=== PATIENT | male | born 1945 | race Caucasian/White ===

== ENCOUNTER 2020-12-05 09:53 | Outpatient (CLI) | payer OTHER, SELFPAY ==
--- NOTE | 2020-12-05 11:32 | N.ONRAD NP_ITS ---
Radiation Oncology Consultation Patient Name: Graham Brown Date of : 1945 Date of Service: 12/05/2020 Attending Physician: Lenin Hines M.D. Graham Brown was seen in consultation this morning [facility] for the management of a previously diagnosed prostate cancer with a recent PSA elevation indicating biochemical failure. He initially was diagnosed in 2005 with prostate cancer whereupon a radical prostatectomy was performed (the outside hospital records were requested). The pathology report confirmed an adenocarcinoma the prostate (10- 15% involvement) with a [place] score of 3+3 (pT2c). A pelvic lymphadenectomy was not performed. The patient's PSA level incipiently neva to 0.1 ng/mL in October 2018. His most recent PSA (October) was 0.5 ng/mL. A F???18???fluciclovine PET/CT scan (Axumin) ordered on October demonstrated a 7.7 x 3.3 mm focus increased radiopharmaceutical infero-posterior bladder wall (SUV 5.7) that is consistent with recurrent prostate carcinoma. The patient was evaluated for salvage radiotherapy. I reviewed the recommendations as per National Comprehensive Cancer Network Guidelines in conjunction with androgen deprivation therapy for salvage radiotherapy. I also discussed the RTOG 9601 trial that determined 24 months of antiandrogen therapy to salvage radiotherapy resulted in an improvement in overall survival and the GETUG-AFU 16 that attested improvement in progression free survival to the patients randomized to radiotherapy in conjunction with short-term hormonal suppression. I would endorse a 6 1/2 week course of radiotherapy with concurrent gonadotropin releasing hormone agonist pharmacotherapy. Prior to beginning treatment, a CT scan will be acquired in the treatment position to delineate the clinical target volume. Toxicities of pelvic radiotherapy were also canvassed. The patient has verbalized understanding would like proceed as recommended. I will order labs today. The patient's medical treatment plan was discussed with Mayito Lux M.D. Signed by: Dr. Lenin Hines 12/12/2020 10:56:37 AM
[2020-12-05 12:41] LABS: Basophils # 0.1 10^3/uL (0.0-0.1); Basophils % 0.8 %; Eosinophils # 0.3 10^3/uL (0.0-0.8); Eosinophils % 3.9 %; Hematocrit 43.6 % (42.0-52.0); Hemoglobin 14.3 g/dL (11.7-16.6); Lymphocytes # 1.9 10^3/uL (0.8-4.8); Lymphocytes % 29.1 %; Mean Corpuscular HGB Conc 32.8 g/dL (30.0-36.0); Mean Corpuscular Hemoglobin 32.1 pg (28.0-34.0); Mean Platelet Volume 11.1 fL (7.4-10.4); Monocytes # 0.5 10^3/uL (0.2-0.9); Monocytes % 7.9 %; Neutrophils # 3.74 10^3/uL (1.8-7.7); Neutrophils % 57.8 %; Nucleated Red Blood Cells % 0 %; Platelet Count 161 10^3/cmm (130-400); Red Blood Count 4.45 10^6/uL (4.1-5.3); Red Cell Distribution Width 12.9 % (12.1-15.1); White Blood Count 6.5 10^3/uL (4.0-10.0)
[2020-12-05 13:21] LABS: Prostate Specific Antigen 0.302 ng/mL (0-4); Testosterone Total 523.8 ng/dL (193-740)
[2020-12-05 13:33] LABS: Alanine Aminotransferase 18 U/L (0-41); Albumin Level 3.9 g/dL (3.5-5.2); Alkaline Phosphatase 49 IU/L (40-130); Anion Gap 14.2 (5-19); Aspartate Amino Transferase 17 U/L (0-40); Blood Urea Nitrogen 10 mg/dL (8-23); Calcium 8.4 mg/dL (8.5-10.5); Carbon Dioxide 24 mmol/L (22-29); Chloride 105 mmol/L (98-107); Globulin 2.2 g/dL (1.3-4.6); Glucose 85 mg/dL (65-115); Osmolality Calculated 286 mOsm/kg (285-295); Potassium 4.2 mmol/L (3.5-5.1); Sodium 139 mmol/L (136-145); Total Bilirubin 0.6 mg/dL (0.15-1.2); Total Protein 6.1 g/dL (6.6-8.7)
== END 2020-12-05 09:54 | disposition home or self-care (01) ==
PROVIDERS: PCP Nurse Practitioner Family; Visit Provider Radiology Radiation Oncology
DX: C61 Malignant neoplasm of prostate (principal); R97.20 Elevated prostate specific antigen [PSA]; Z79.818 Long term (current) use of other agents affecting estrogen receptors and estrogen levels; Z79.899 Other long term (current) drug therapy
CPT/HCPCS: 36415; 80053; 84153; 84403; 85025; 99205

== ENCOUNTER 2020-12-12 07:41 | Outpatient (CLI) | payer OTHER, SELFPAY ==
--- NOTE | 2020-12-12 12:43 | ONC CON_ITS ---
Dr. Lux New Patient Note Patient: Graham Brown < Unit #: [id number]: 1945 Dicatated By: Mayito Lux M.D.Date of Visit: Dec 12, 2020 Onc MED New Patient/Consult Referring Physician: Jose Maza History of Present Illness: Mr. Graham Brown, is a 75-year-old gentleman with a history of prostate cancer diagnosed in 2005 at that time he underwent radical prostatectomy without pelvic lymphadenectomy and pathology report showed adenocarcinoma of the prostate 10 to 15% involvement with Cable score 3+3 (pT2c) and during follow-up his PSA increased to 0.1 ng/ml in October 2018 and then in October 2019 increased to 0.5 ng/ml and at that time Axumin CT PET scan was ordered which was done on November 05, 2020 showed 7.7 x 3.3 mm focus increased radiopharmaceutical inferoposterior lateral wall SUV 5.7 that is consistent with recurrent prostate cancer, Patient was referred to radiation oncology for salvage radiotherapy Patient denies any hematuria denies any new bony pains, denies any fever or chills denies any nausea or vomiting denies any diarrhea or constipation, denies any weight loss, patient denies smoking but chews tobacco, denies any alcohol use. Now being evaluated for combined ADT/radiation therapy Past Medical History: Mr. Brown's medical history consists of anxiety, asthma, atrial fibrillation, BENIGN PROSTATIC HYPERTROPHY, ERECTILE DYSFUNCTION, gastroesophageal reflux disease, hypertension, osteoarthritis, SLEEP APNEA, thoracic aortic aneurysm, and vitamin d deficiency. Past Surgical History: Mr. Brown's surgical/procedural history consists of prostatectomy, tonsillectomy, and colonoscopy in 2016. Medications: Carvedilol (25 mg) Tablet Oral b.i.d., Cholecalciferol (25 mcg ) Tablet Oral daily, Diclofenac Sodium Gel (jelly) Topical b.i.d. PRN, Ketoconazole Shampoo Topical on M,Th,F PRN, Omeprazole (20 mg) Capsule Delayed Release Oral every am, PARoxetine HCl (5 mg) Tablet Oral daily, Pravastatin Sodium (40 mg) Tablet Oral at bedtime, Rivaroxaban (20 mg) Tablet Oral at bedtime Allergies: No Known Allergies. Social History: Mr. Brown is . Mr. Brown quit smoking 35 years ago but had smoked 1.5 packs/day for 20 years. He is a former drinker. He has indicated exposure to the following products: chewing tobacco. Chews. Family History: Mr. Brown's mother at age 76. Mr. Brown's father at age 77. Mr. Brown has 1 brother who is alive. He has 1 sister who is alive. Review Of Symptoms: Review of Systems is not available for this patient. Vital Signs: Performed on Dec 12, 2020 11:08: 6, 0, 29.46, 2.09 sq.m, 69.50 in, 97 %, 57 /min (LOW), 18 /min, 132/87 mm(hg), 98.4 F, and 202.4 lbs (LOW). Performance Status: 0 - Fully active, able to carry on all predisease activities without restrictions. (ECOG) Physical Examination: ENMT - No mouth sores, no thrush, no jaundice, Respiratory - Lungs are clear to auscultation, Cardiovascular - Irregular rate and rhythm, Abdomen - Soft, bowel sounds present, Extremities - No visible edema or rash. Lab/Imaging: Most recent lab results are not available for this patient. Impression: Recurrent prostate cancer confirmed with increased PSA, in October 2020 it was 0.5 ng/ml compared to 0.1 ng/ml in October 2018 and follow-up Axumin CT PET scan done on November 05, 2020 showed 7.7 x 3.3 mm focus of increased radiopharmaceutical inferoposterior bladder wall lesion with SUV of 5.7 consistent with recurrent prostate cancer History of adenocarcinoma prostate status post radical prostatectomy without pelvic lymphadenectomy done in 2005,, final pathology report showed T2c, l10 to 15% involvement with Cable score 3+3 History of atrial fibrillation, on anticoagulation, Hypertension, osteoarthritis Aneurysm of thoracic aorta Plan: Discussed with patient regarding his disease status and treatment options, as per recently done Axumin CT PET scan which confirmed solitary lesion in inferoposterior bladder wall, now being considered for salvage radiotherapy, as per patient discussion with radiation oncology Dr. Hines based on NCCN guidelines and per clinical trial RTOG 9601 trial, and GET-AFU 16, shows improvement in progression free survival with the addition of short-term hormonal therapy to the salvage radiation therapy. In that case, we will consider Zoladex 10.8 mg every 3 months x2 concurrent with salvage radiation therapy, will start Zoladex on first day of radiation therapy and then repeat in 3 months. All the side effect, possible benefits associated with ADT including but not limited to hot flashes, mood swings, generalized weakness and fatigue, decreased libido, bone demineralization especially with long-term ADT. Further teaching will done by chemotherapy nurse, patient and family agreed for the treatment, at this point will obtain approval from his insurance prior to the treatment and patient will return to clinic in 1 month after the Zoladex injection with CBC CMP PSA and testosterone. Signed By: Mayito Lux M.D. <<Signature on File>>
== END 2020-12-12 07:42 | disposition home or self-care (01) ==
PROVIDERS: PCP Nurse Practitioner Family; Visit Provider Internal Medicine Hematology & Oncology
DX: C61 Malignant neoplasm of prostate (principal); R97.20 Elevated prostate specific antigen [PSA]; R59.0 Localized enlarged lymph nodes; I48.20 Chronic atrial fibrillation, unspecified; Z79.01 Long term (current) use of anticoagulants; I10 Essential (primary) hypertension; M19.90 Unspecified osteoarthritis, unspecified site; I71.2 Thoracic aortic aneurysm, without rupture; Z79.899 Other long term (current) drug therapy; Z79.890 Hormone replacement therapy
CPT/HCPCS: 99204

== ENCOUNTER 2020-12-31 05:46 | Outpatient (RCR) | payer OTHER, SELFPAY ==
--- NOTE | 2020-12-18 | CT_ITS ---
Radiation Therapy Planning CT images; total exam DLP: 1258.38 mGy-cm MTDD
[2020-12-23] MEDS: lidocaine 1% INJ 20 mL INJECTION (09:07)
[2020-12-23] MEDS: goserelin acetate 10.8 mg Implant SUBCUT (09:17)
--- NOTE | 2020-12-23 09:58 | ONCRAD TMN_ITS ---
Radiation Oncology Treatment Management Note Patient Name: Graham Brown Date of : 1945 Date of Service: 12/23/2020 Attending Physician: Lenin Hines M.D. Graham Brown is a 75 year old white male previously diagnosed with prostate cancer and recently developed a PSA elevation indicating a biochemical failure. He initially was diagnosed in 2005 with prostate cancer whereupon a radical prostatectomy was performed. The pathology report confirmed an adenocarcinoma the prostate (10- 15% involvement) with a [place] score of 3+3 (pT2c). A pelvic lymphadenectomy was not performed. The patient's PSA level incipiently neva to 0.1 ng/mL in October 2018. His most recent PSA (October) was 0.5 ng/mL. An F???18 fluciclovine PET/CT scan (Axumin) ordered on November 05, 2020 demonstrated a 7.7 x 3.3 mm focus increased radiopharmaceutical infero-posterior bladder wall (SUV 5.7) that is consistent with recurrent prostate carcinoma. The patient has received 2 Gy of a prescribed 66 Esparza to the prostate fossa with an intensity modulated radiotherapy plan utilizing a step and shoot treatment technique. He was prescribed Zoladex (October 10, 2020). Upon review of systems, he denied any gastrointestinal complaints related to radiotherapy. On physical examination, the patient weighed 206 lbs. His temperature was 97.1 ???F with a blood pressure of 142/91 mmHg. The pulse was 52 bpm and his respiratory rate was 18. There was no erythema within the treatment joya. Continue pelvic radiotherapy as prescribed. Signed by: Dr. Lenin Hines 12/23/2020 9:56:43 AM
--- NOTE | 2020-12-30 10:24 | ONCRAD TMN_ITS ---
Radiation Oncology Weekly Treatment Management Patient: Stephanie Stevenson MR#: [id number] : 1945 Attending Physician: Dr. Gatito Murcia Date of Service: 12/30/2020 Referring Physician(s) : Diagnosis: C61 - Malignant neoplasm of prostate, Diagnosed 11/05/2020 (Active) Radiotherapy to date: Course: Prostate 2020, Treatment Site: Prostate Ca ??? [facility], Ref. ID: [id number], Energy: 6X, Dose/Fx (cGy): 200, #Fx: , Dose Correction (cGy): 0, Total Dose (cGy): 1,200, Start Date: 12/23/2020, Elapsed Days: 7 Reason for visit: The patient is being seen today as part of their regularly scheduled weekly on treatment visits to assess for acute toxicities from radiotherapy. Review of Systems: Mr. Brown is beginning his second week of salvage radiation following a biochemical failure after radical prostatectomy. He is receiving concomitant Zoladex. Currently he feels well and has no complaints. He has no dysuria, pyuria, or hematuria. He has nocturia x3 which is normal for him. He has in continence from the prostatectomy and thinks it may be a little worse since starting radiation. [facility] and does not seem concerned about the incontinence. In terms of bowels, he has some episodes of diarrhea but tends to have that from medication. He has not noted a change in the pattern. Vital Signs: Performed on 12/30/2020 9:48 AM BMI - 30.131 kg/m2 (high), Height - 69.50 in, Weight - 207.0 lbs, Temperature - 97.2 f, Pulse - 54 /min (low), Respiration - 20 /min, O2 Sat - 97 %, Pain - 3 and BP - 148/ 92 mm(hg)(high). Physical Exam: He has a small bruise on his lower abdomen from a recent Zoladex injection. He has no anterior pelvic wall or inguinal skin reaction. Also no skin reaction involving the buttocks or intergluteal fold. He is alert, oriented, and in no acute distress. Imaging: Radiation therapy imaging related to accurate target localization (i.e. KV, MV and CBCT) was reviewed. Appropriate changes, if any, were made to ensure treatment accuracy. Plan: Continue radiation according to plan. We discussed the use of Imodium A-D if diarrhea becomes a problem. Also mentioned that a low fiber diet may be needed if his diarrhea is poorly controlled. He had no questions about the treatment process. Signed by: Dr. Gatito Murcia 12/30/2020 10:22:21 AM
== END 2020-12-31 23:59 | disposition home or self-care (01) ==
LOC: ONCMED 05:46
PROVIDERS: Absent Provider Radiology Radiation Oncology; PCP Nurse Practitioner Family; Visit Provider Specialist
DX: Z51.0 Encounter for antineoplastic radiation therapy (principal); Z51.11 Encounter for antineoplastic chemotherapy; C61 Malignant neoplasm of prostate; Z79.899 Other long term (current) drug therapy
CPT/HCPCS: 77300; 77301; 77334; 77338; 77385; 77470; 96372; 96402; J9202

== ENCOUNTER 2021-01-30 06:31 | Outpatient (RCR) | payer OTHER, SELFPAY ==
--- NOTE | 2021-01-07 09:05 | ONCRAD TMN_ITS ---
Radiation Oncology Treatment Management Note Patient Name: Graham Brown Date of : 1945 Date of Service: 01/07/2021 Attending Physician: Lenin Hines M.D. Graham Brown is a 75 year old white male previously diagnosed with prostate cancer and recently developed a PSA elevation indicating a biochemical failure. He initially was diagnosed in 2005 with prostate cancer whereupon a radical prostatectomy was performed. The pathology report confirmed an adenocarcinoma the prostate (10- 15% involvement) with a [place] score of 3+3 (pT2c). A pelvic lymphadenectomy was not performed. The patient's PSA level incipiently neva to 0.1 ng/mL in October 2018. His most recent PSA (October) was 0.5 ng/mL. An F???18 fluciclovine PET/CT scan (Axumin) ordered on November 05, 2020 demonstrated a 7.7 x 3.3 mm focus increased radiopharmaceutical infero-posterior bladder wall (SUV 5.7) that is consistent with recurrent prostate carcinoma. The patient has received 18 Gy of a prescribed 66 Esparza to the prostate fossa with an intensity modulated radiotherapy plan utilizing a step and shoot treatment technique. He was prescribed Zoladex (October 10, 2020). Upon review of systems, he denied any gastrointestinal complaints related to radiotherapy. On physical examination, the patient weighed 205 lbs. His temperature was 97.9 ???F with a blood pressure of 154/101 mmHg. The pulse was 66 bpm and his respiratory rate was 18. There was no erythema within the treatment joya. Continue pelvic radiotherapy as planned. Signed by: Dr. Lenin Hines 01/07/2021 9:05:18 AM
--- NOTE | 2021-01-13 09:52 | ONCRAD TMN_ITS ---
Radiation Oncology Treatment Management Note Patient Name: Graham Brown Date of : 1945 Date of Service: 01/13/2021 Attending Physician: Lenin Hines M.D. Graham Brown is a 75 year old white male previously diagnosed with prostate cancer and recently developed a PSA elevation indicating a biochemical failure. He initially was diagnosed in 2005 with prostate cancer whereupon a radical prostatectomy was performed. The pathology report confirmed an adenocarcinoma the prostate (10- 15% involvement) with a [place] score of 3+3 (pT2c). A pelvic lymphadenectomy was not performed. The patient's PSA level incipiently neva to 0.1 ng/mL in October 2018. His most recent PSA (October) was 0.5 ng/mL. An F???18 fluciclovine PET/CT scan (Axumin) ordered on November 05, 2020 demonstrated a 7.7 x 3.3 mm focus increased radiopharmaceutical infero-posterior bladder wall (SUV 5.7) that is consistent with recurrent prostate carcinoma. The patient has received 26 Gy of a prescribed 66 Esparza to the prostate fossa with an intensity modulated radiotherapy plan utilizing a step and shoot treatment technique. He was prescribed Zoladex (October 10, 2020). Upon review of systems, he denied any genitourinary complaints related to radiotherapy. On physical examination, the patient weighed 204 lbs. His temperature was 97.2 ???F with a blood pressure of 148/101 mmHg. The pulse was 58 bpm and his respiratory rate was 20. There was no erythema within the treatment joya. Continue pelvic radiotherapy as prescribed. Signed by: Dr. Lenin Hines 01/13/2021 9:51:31 AM
[2021-01-16 10:31] LABS: Basophils % 0.6 %; Eosinophils # 0.2 10^3/uL (0.0-0.8); Eosinophils % 3.4 %; Hematocrit 43.1 % (42.0-52.0); Hemoglobin 14.4 g/dL (11.7-16.6); Lymphocytes # 1.3 10^3/uL (0.8-4.8); Lymphocytes % 20.9 %; Mean Corpuscular HGB Conc 33.4 g/dL (30.0-36.0); Mean Corpuscular Hemoglobin 32.4 pg (28.0-34.0); Mean Corpuscular Volume 96.9 fl (80-94); Mean Platelet Volume 10.3 fL (7.4-10.4); Monocytes # 0.5 10^3/uL (0.2-0.9); Monocytes % 8.3 %; Neutrophils # 4.16 10^3/uL (1.8-7.7); Neutrophils % 66.5 %; Nucleated Red Blood Cells % 0 %; Platelet Count 143 10^3/cmm (130-400); Red Blood Count 4.45 10^6/uL (4.1-5.3); Red Cell Distribution Width 12.4 % (12.1-15.1); White Blood Count 6.3 10^3/uL (4.0-10.0)
[2021-01-16 11:26] LABS: Prostate Specific Antigen 0.045 ng/mL (0-4); Testosterone Total 2.5 ng/dL (193-740)
[2021-01-16 11:37] LABS: Alanine Aminotransferase 41 U/L (0-41); Alkaline Phosphatase 51 IU/L (40-130); Anion Gap 14.5 (5-19); Aspartate Amino Transferase 23 U/L (0-40); Blood Urea Nitrogen 12 mg/dL (8-23); Calcium 8.8 mg/dL (8.5-10.5); Carbon Dioxide 24 mmol/L (22-29); Chloride 107 mmol/L (98-107); Globulin 2.1 g/dL (1.3-4.6); Glucose 87 mg/dL (65-115); Osmolality Calculated 291 mOsm/kg (285-295); Potassium 4.5 mmol/L (3.5-5.1); Sodium 141 mmol/L (136-145); Total Bilirubin 0.7 mg/dL (0.15-1.2); Total Protein 6.1 g/dL (6.6-8.7)
--- NOTE | 2021-01-20 09:45 | ONCRAD TMN_ITS ---
Radiation Oncology Treatment Management Note Patient Name: Graham Brown Date of : 1945 Date of Service: 01/20/2021 Attending Physician: Lenin Hines M.D. Graham Brown is a 75 year old white male previously diagnosed with prostate cancer and recently developed a PSA elevation indicating a biochemical failure. He initially was diagnosed in 2005 with prostate cancer whereupon a radical prostatectomy was performed. The pathology report confirmed an adenocarcinoma the prostate (10- 15% involvement) with a [place] score of 3+3 (pT2c). A pelvic lymphadenectomy was not performed. The patient's PSA level incipiently neva to 0.1 ng/mL in October 2018. His most recent PSA (October) was 0.5 ng/mL. An ???18 fluciclovine PET/CT scan (Axumin) ordered on November 05, 2020 demonstrated a 7.7 x 3.3 mm focus increased radiopharmaceutical infero-posterior bladder wall (SUV 5.7) that is consistent with recurrent prostate carcinoma. The patient has received 36 Gy of a prescribed 66 Esparza to the prostate fossa with an intensity modulated radiotherapy plan utilizing a step and shoot treatment technique. He was prescribed Zoladex (October 10, 2020). Upon review of systems, he reported urinary frequency. On physical examination, the patient weighed 204 lbs. His temperature was 97.1 ???F with a blood pressure of 144/95 mmHg. The pulse was 60 bpm and his respiratory rate was 18. There was no erythema within the treatment joya. Continue pelvic radiotherapy as planned. Signed by: Dr. Lenin Hines 01/20/2021 9:43:41 AM
--- NOTE | 2021-01-28 09:52 | ONCRAD TMN_ITS ---
Radiation Oncology Treatment Management Note Patient Name: Graham Brown Date of : 1945 Date of Service: 01/28/2021 Attending Physician: Lenin Hines M.D. Graham Brown is a 75 year old white male previously diagnosed with prostate cancer and recently developed a PSA elevation indicating a biochemical failure. He initially was diagnosed in 2005 with prostate cancer whereupon a radical prostatectomy was performed. The pathology report confirmed an adenocarcinoma the prostate (10- 15% involvement) with a [place] score of 3+3 (pT2c). A pelvic lymphadenectomy was not performed. The patient's PSA level incipiently neva to 0.1 ng/mL in October 2018. His most recent PSA (October) was 0.5 ng/mL. An F???18 fluciclovine PET/CT scan (Axumin) ordered on November 05, 2020 demonstrated a 7.7 x 3.3 mm focus increased radiopharmaceutical infero-posterior bladder wall (SUV 5.7) that is consistent with recurrent prostate carcinoma. The patient has received 48 Gy of a prescribed 66 Esparza to the prostate fossa with an intensity modulated radiotherapy plan utilizing a step and shoot treatment technique. He was prescribed Zoladex (October 10, 2020). Upon review of systems, he denied genitourinary symptoms related to radiotherapy. On physical examination, the patient weighed 205 lbs. His temperature was 96.9 ???F with a blood pressure of 154/99 mmHg. The pulse was 68 bpm and his respiratory rate was 20. There was no erythema within the treatment joya. Continue pelvic radiotherapy as prescribed. Signed by: Dr. Lenin Hines 01/28/2021 9:50:18 AM
--- NOTE | 2021-03-21 13:03 | ONC FU_ITS ---
Dr. Lux follow up note Patient: Graham Brown Unit #: [id number]: 1945 Dicatated By: Mayito Lux M.D.Date of Visit:Jan 16, 2021 Onc Med Follow-up/Prog Note History of Present Illness: Mr. Graham Brown, is a 76-year-old gentleman with a history of prostate cancer diagnosed in 2005 at that time he underwent radical prostatectomy without pelvic lymphadenectomy and pathology report showed adenocarcinoma of the prostate 10 to 15% involvement with [place] score 3+3 (pT2c) and during follow-up his PSA increased to 0.1 ng/ml in October 2018 and then in October 2019 increased to 0.5 ng/ml and at that time [facility] CT PET scan was ordered which was done on November 05, 2020 showed 7.7 x 3.3 mm focus increased radiopharmaceutical inferoposterior lateral wall SUV 5.7 that is consistent with recurrent prostate cancer, Patient was referred to radiation oncology for salvage radiotherapy Patient denies any hematuria denies any new bony pains, denies any fever or chills denies any nausea or vomiting denies any diarrhea or constipation, denies any weight loss, patient denies smoking but chews tobacco, denies any alcohol use. s/p combined ADT/radiation therapy With 3 monthly Zoladex x2, Came for follow-up, denies any specific complaints, no fever chills, no nausea or vomiting, no diarrhea constipation, tolerating combined ADT with radiation well. Patient tolerated first dose of Zoladex well but with expected side effect e.g. occasionally hot flashes Medications: Carvedilol (25 mg) Tablet Oral b.i.d., Cholecalciferol (25 mcg ) Tablet Oral daily, Diclofenac Sodium Gel (jelly) Topical b.i.d. PRN, Ketoconazole Shampoo Topical on M,Th,F PRN, Omeprazole (20 mg) Capsule Delayed Release Oral, PARoxetine HCl (5 mg) Tablet Oral daily, Pravastatin Sodium (40 mg) Tablet Oral at bedtime, Rivaroxaban (20 mg) Tablet Oral at bedtime Allergies: No Known Allergies. Review of Systems: Review of Systems is not available for this patient. Vital Signs: Performed on Jan 16, 2021 11:53 Height - 69.50 in Weight - 206.4 lbs (HIGH) BSA - 2.10 sq.m BMI - 30.04 (HIGH) Temperature - 97.1 F (LOW) Pulse - 60 /min Respiration - 17 /min BP - 145/89 mm(hg) (HIGH) O2 Sat - 98 % Pain - 0 Performance Status: 0 - Fully active, able to carry on all predisease activities without restrictions. (ECOG) Physical Examination: ENMT - No mouth sores, no thrush, no jaundice, Respiratory - Lungs are clear to auscultation, Cardiovascular - Regular rate and rhythm of heart, Abdomen - Soft, bowel sounds present, Extremities - No visible edema. Lab/Imaging: Test performed on Mar 14, 2021 10:25 Testosterone 2.5 ng/dL PSA 0.006 ng/mL Impression: Recurrent prostate cancer confirmed with increased PSA, in October 2020 it was 0.5 ng/ml compared to 0.1 ng/ml in October 2018 and follow-up [facility] CT PET scan done on November 05, 2020 showed 7.7 x 3.3 mm focus of increased radiopharmaceutical inferoposterior bladder wall lesion with SUV of 5.7 consistent with recurrent prostate cancer History of adenocarcinoma prostate status post radical prostatectomy without pelvic lymphadenectomy done in 2005,, final pathology report showed T2c, l10 to 15% involvement with Hammad score 3+3 History of atrial fibrillation, on anticoagulation, Hypertension, osteoarthritis Aneurysm of thoracic aorta Plan: Discussed with patient regarding his labs white blood count 4.45 hemoglobin 14.4 hematocrit 43.1 platelets 143,000 CMP within normal limits PSA 0.045 Patient is tolerating combined therapy with ADT/radiation therapy well patient has tolerated first dose of Zoladex well, he will return to clinic in 2 months with a PSA and for second/last dose of Zoladex. Signed By: Mayito Lux M.D. <<Signature on File>>
== END 2021-01-30 23:59 | disposition home or self-care (01) ==
LOC: ONCMED 06:31
PROVIDERS: Internal Medicine Hematology & Oncology; Absent Provider Radiology Radiation Oncology; PCP Nurse Practitioner Family; Visit Provider Radiology Radiation Oncology
DX: Z51.0 Encounter for antineoplastic radiation therapy (principal); C61 Malignant neoplasm of prostate; R97.20 Elevated prostate specific antigen [PSA]; Z79.899 Other long term (current) drug therapy
CPT/HCPCS: 36415; 77014; 77336; 77385; 77387; 80053; 84153; 84403; 85025; 99214

== ENCOUNTER 2021-02-11 06:28 | Outpatient (RCR) | payer OTHER, SELFPAY ==
--- NOTE | 2021-02-03 09:45 | ONCRAD TMN_ITS ---
Radiation Oncology Treatment Management Note Patient Name: Graham Brown Date of : 1945 Date of Service: 02/03/2021 Attending Physician: Lenin Hines M.D. Graham Brown is a 75 year old white male previously diagnosed with prostate cancer and recently developed a PSA elevation indicating a biochemical failure. He initially was diagnosed in 2005 with prostate cancer whereupon a radical prostatectomy was performed. The pathology report confirmed an adenocarcinoma the prostate (10- 15% involvement) with a [place] score of 3+3 (pT2c). A pelvic lymphadenectomy was not performed. The patient's PSA level incipiently neva to 0.1 ng/mL in October 2018. His most recent PSA (October) was 0.5 ng/mL. An F???18 fluciclovine PET/CT scan (Axumin) ordered on November 05, 2020 demonstrated a 7.7 x 3.3 mm focus increased radiopharmaceutical infero-posterior bladder wall (SUV 5.7) that is consistent with recurrent prostate carcinoma. The patient has received 54 Gy of a prescribed 66 Esparza to the prostate fossa with an intensity modulated radiotherapy plan utilizing a step and shoot treatment technique. He was prescribed Zoladex (October 10, 2020). Upon review of systems, he denied genitourinary symptoms related to radiotherapy. On physical examination, the patient weighed 206 lbs. His temperature was 97.2 ???F with a blood pressure of 136/90 mmHg. The pulse was 64 bpm and his respiratory rate was 20. There was no erythema within the treatment joya. Continue pelvic radiotherapy as planned. Signed by: Dr. Lenin Hines 02/03/2021 9:43:34 AM
--- NOTE | 2021-02-10 10:21 | ONCRAD TMN_ITS ---
Radiation Oncology Treatment Management Note Patient Name: Graham Brown Date of : 1945 Date of Service: 02/10/2021 Attending Physician: Lenin Hines M.D. Graham Brown is a 75 year old white male previously diagnosed with prostate cancer and recently developed a PSA elevation indicating a biochemical failure. He initially was diagnosed in 2005 with prostate cancer whereupon a radical prostatectomy was performed. The pathology report confirmed an adenocarcinoma the prostate (10- 15% involvement) with a [place] score of 3+3 (pT2c). A pelvic lymphadenectomy was not performed. The patient's PSA level incipiently neva to 0.1 ng/mL in October 2018. His most recent PSA (October) was 0.5 ng/mL. An F???18 fluciclovine PET/CT scan (Axumin) ordered on November 05, 2020 demonstrated a 7.7 x 3.3 mm focus increased radiopharmaceutical infero-posterior bladder wall (SUV 5.7) that is consistent with recurrent prostate carcinoma. The patient has received 64 Gy of a prescribed 66 Esparza to the prostate fossa with an intensity modulated radiotherapy plan utilizing a step and shoot treatment technique. He was prescribed Zoladex (October 10, 2020). Upon review of systems, he denied genitourinary symptoms related to radiotherapy. On physical examination, the patient weighed 204 lbs. His temperature was 96.8 ???F with a blood pressure of 138/101 mmHg. The pulse was 53 bpm and his respiratory rate was 20. There was no erythema within the treatment joya. Continue prostatic fossa radiotherapy as prescribed. Signed by: Dr. Lenin Hnies 02/10/2021 10:12:00 AM
--- NOTE | 2021-02-11 13:04 | N.ONRD TS_ITS ---
Radiation OncologyTreatment Summary Patient Name: Graham Brown Date of : 1945 Date of Service: 02/11/2021 Attending Physician: Lenin Hines M.D. Graham Suarez has completed prostatic fossa radiotherapy for the management of a prostate cancer biochemical failure. He initially was diagnosed in 2005 with prostate cancer whereupon a radical prostatectomy was performed. The pathology report confirmed an adenocarcinoma the prostate (10- 15% involvement) with a [place] score of 3+3 (pT2c). A pelvic lymphadenectomy was not performed. The patient's PSA level incipiently neva to 0.1 ng/mL in October 2018. His most recent PSA (October) was 0.5 ng/mL. An F???18 fluciclovine PET/CT scan (Axumin) ordered on November 05, 2020 demonstrated a 7.7 x 3.3 mm focus increased radiopharmaceutical infero-posterior bladder wall (SUV 5.7) that is consistent with recurrent prostate carcinoma. He was prescribed short-term ADT (Zoladex 10.8 mg - December 23, 2020) according to the GETUG-AFU 16 study. Daily radiotherapy was administered between the dates of December 23, 2020 through February 11, 2021. A prescribed dose of 66 Gy was delivered in 33 fractions encompassing 51 elapsed days. The prostatic fossa was treated utilizing an intensity modulated radiotherapy plan with a step and shoot treatment technique. A total of eight gantry angles (35???, 70???, 105???, 140???, 230???, 265???, 300???, and 335???), respectively, with an associated collimator rotation 0??? were arranged in an arc technique. The field sizes measured between maximum of 11.3 cm x 7.5 cm and a minimum of 8.8 cm x 7.5 cm. The measured SSDs spanned from 81.6 cm to 86.9 cm. The ports delivered 170 MU, 167 MU, 167 MU, 196 MU, 158 MU, 175 MU, 163 MU, and 184 MU corresponding to the gantry angles described. All treatments were performed with the Perfect Channel linear accelerator and an isocentric technique. The dose was calculated by Anisotropic Analytic Algorithm. A photon energy of 6 MV was prescribed with the plan normalized to deliver 100% of the prescription dose to 95% of the planning target volume. Signed by: Dr. Lenin Hines 02/11/2021 1:02:42 PM
== END 2021-03-02 23:59 | disposition home or self-care (01) ==
LOC: ONCMED 06:28
PROVIDERS: Absent Provider Radiology Radiation Oncology; PCP Nurse Practitioner Family; Visit Provider Radiology Radiation Oncology
DX: Z51.0 Encounter for antineoplastic radiation therapy (principal); C61 Malignant neoplasm of prostate
CPT/HCPCS: 77336; 77385

== ENCOUNTER 2021-03-18 06:24 | Outpatient (RCR) | payer OTHER, SELFPAY ==
--- NOTE | 2021-03-14 10:15 | ONCRAD EPV_ITS ---
Radiation Oncology Follow-Up Note Patient Name: Graham Brown Date of : 1945 Date of Service: 03/14/2021 Attending Physician: Lenin Hines M.D. Graham Suarez returned to my office this morning for a scheduled follow-up appointment. He completed salvage prostatic fossa radiotherapy in January for the management of a prostate cancer biochemical failure. He initially was diagnosed in 2005 with prostate cancer whereupon a radical prostatectomy was performed. The pathology report confirmed an adenocarcinoma the prostate (10- 15% involvement) with a Hammad score of 3+3 (pT2c). A pelvic lymphadenectomy was not performed. The patient's PSA level incipiently neva to 0.1 ng/mL in October 2018. His most recent PSA (October) was 0.5 ng/mL. An F???18 fluciclovine PET/CT scan ([facility]) ordered on November 05, 2020 demonstrated a 7.7 x 3.3 mm focus increased radiopharmaceutical infero-posterior bladder wall (SUV 5.7) that is consistent with recurrent prostate carcinoma. He was prescribed short-term ADT (first cycle of Zoladex 10.8 mg was administered on December 23, 2020) according to the GETUG-AFU 16 study. Daily radiotherapy was administered between the dates of December 23, 2020 through February 11, 2021. A prescribed dose of 66 Gy was delivered in 33 fractions encompassing 51 elapsed days. On review of systems, the patient denied lower urinary tract symptoms and he did not report any gastrointestinal complaints. He does have hot flashes. On physical examination, the patient weighed 207 pounds. The temperature is 97.1 ???F. His blood pressure was 144/90 mmHg. The pulse was 75 bpm and his respiratory rate was 18 breaths per minute. Genitourinary exam was deferred. In summary, Mr. Barrientos returned for a routine post-radiotherapy follow-up. A PSA and testosterone were ordered today. He will also administered the second cycle of a two cycles of Zoladex next week. He will continue follow-up with his medical oncologist and urologist as scheduled. Signed by: Dr. Lenin Hines 03/14/2021 10:14:02 AM
[2021-03-14 11:13] LABS: Prostate Specific Antigen < 0.006 ng/mL (0-4)
[2021-03-14 13:03] LABS: Testosterone Total 2.5 ng/dL (193-740)
[2021-03-18] MEDS: lidocaine 1% INJ 20 mL INJECTION (14:50)
[2021-03-18] MEDS: goserelin acetate 10.8 mg Implant SUBCUT (14:55)
--- NOTE | 2021-03-18 15:13 | ONC FU_ITS ---
Dr. Lux follow up note Patient: Graham Brown < Unit #: [id number]: 1945 Dicatated By: Mayito Lux M.D.Date of Visit:Mar 18, 2021 Onc Med Follow-up/Prog Note History of Present Illness: Mr. Graham Brown, is a 76-year-old gentleman with a history of prostate cancer diagnosed in 2005 at that time he underwent radical prostatectomy without pelvic lymphadenectomy and pathology report showed adenocarcinoma of the prostate 10 to 15% involvement with Hammad score 3+3 (pT2c) and during follow-up his PSA increased to 0.1 ng/ml in October 2018 and then in October 2019 increased to 0.5 ng/ml and at that time [facility] CT PET scan was ordered which was done on November 05, 2020 showed 7.7 x 3.3 mm focus increased radiopharmaceutical inferoposterior lateral wall SUV 5.7 that is consistent with recurrent prostate cancer, Patient was referred to radiation oncology for salvage radiotherapy Patient denies any hematuria denies any new bony pains, denies any fever or chills denies any nausea or vomiting denies any diarrhea or constipation, denies any weight loss, patient denies smoking but chews tobacco, denies any alcohol use. s/p combined ADT/radiation therapy With 3 monthly Zoladex x2, completed on March 18, 2021 Came for follow-up, denies any specific complaint except off-and-on hot flashes otherwise no fever chills, no nausea or vomiting, no diarrhea or constipation, no hematuria or dysuria patient has completed radiation therapy on February 11, 2021 and is here for his second/last dose of Zoladex as per protocol. Medications: Carvedilol (25 mg) Tablet Oral b.i.d., Cholecalciferol (25 mcg ) Tablet Oral daily, Diclofenac Sodium Gel (jelly) Topical b.i.d. PRN, Ketoconazole Shampoo Topical on ,, PRN, Omeprazole (20 mg) Capsule Delayed Release Oral, PARoxetine HCl (5 mg) Tablet Oral daily, Pravastatin Sodium (40 mg) Tablet Oral at bedtime, Rivaroxaban (20 mg) Tablet Oral at bedtime Allergies: No Known Allergies. Review of Systems: Review of Systems is not available for this patient. Vital Signs: Performed on Mar 18, 2021 14:00 Height - 69.50 in Weight - 206.8 lbs (LOW) BSA - 2.11 sq.m BMI - 30.10 (HIGH) Temperature - 97.8 F (LOW) Pulse - 83 /min Respiration - 18 /min BP - 144/95 mm(hg) (HIGH) O2 Sat - 97 % Pain - 0 Fatigue - 5 Performance Status: 0 - Fully active, able to carry on all predisease activities without restrictions. (ECOG) Physical Examination: ENMT - No mouth sores, no thrush, no jaundice, Respiratory - Lungs are clear to auscultation, Cardiovascular - Irregular rate and rhythm, Abdomen - Soft, bowel sounds present, Extremities - No visible edema. Lab/Imaging: Test performed on Mar 14, 2021 10:25 Testosterone 2.5 ng/dL PSA 0.006 ng/mL Impression: Recurrent prostate cancer confirmed with increased PSA, in October 2020 it was 0.5 ng/ml compared to 0.1 ng/ml in October 2018 and follow-up [facility] CT PET scan done on November 05, 2020 showed 7.7 x 3.3 mm focus of increased radiopharmaceutical inferoposterior bladder wall lesion with SUV of 5.7 consistent with recurrent prostate cancer History of adenocarcinoma prostate status post radical prostatectomy without pelvic lymphadenectomy done in 2005,, final pathology report showed T2c, l10 to 15% involvement with [place] score 3+3 History of atrial fibrillation, on anticoagulation, Hypertension, osteoarthritis Aneurysm of thoracic aorta Status post combined ADT/concurrent radiation therapy which he completed on February 11, 2021 and last dose of Zoladex was given on March 18, 2021 Plan: Discussed with patient regarding his labs his PSA is less than 0.006 and testosterone is 2.5 Clinically, patient doing well with no new signs symptom suggestive of recurrence/progression of prostate cancer, patient has completed combined ADT/radiation therapy to the prostate, patient completed radiation on February 11, 2021 and as per protocol he was recommended Zoladex every 3 months x2 and patient will receive his second dose of Zoladex today and his follow-up lab work-up shows PSA is less than 0.006 and patient was advised that with moderate exercise and after completion of ADT his occasional hot flashes may improve if not, will consider intervention. Patient will return to clinic in 6 months with PSA Signed By: Mayito Lux M.D. <<Signature on File>>
== END 2021-04-01 23:59 | disposition home or self-care (01) ==
LOC: ONCMED 06:24
PROVIDERS: Absent Provider Radiology Radiation Oncology; PCP Nurse Practitioner Family; Visit Provider Internal Medicine Hematology & Oncology
DX: C61 Malignant neoplasm of prostate (principal); R97.20 Elevated prostate specific antigen [PSA]; I48.20 Chronic atrial fibrillation, unspecified; Z79.01 Long term (current) use of anticoagulants; I10 Essential (primary) hypertension; M19.90 Unspecified osteoarthritis, unspecified site; I71.2 Thoracic aortic aneurysm, without rupture; Z79.818 Long term (current) use of other agents affecting estrogen receptors and estrogen levels; Z92.21 Personal history of antineoplastic chemotherapy; Z92.3 Personal history of irradiation
CPT/HCPCS: 36415; 84153; 84403; 96402; 99024; 99215; J9202